=== PATIENT | male | born 1960 | race Caucasian/White ===

== ENCOUNTER → 2020-03-23 | Outpatient (CLI) | payer BC ==
[~2020-03-23] MED LIST: ISOVUE-370 76% 100ML VIAL As Ordered ONE
--- NOTE | 2020-03-23 15:55 | REP ---
INDICATION: ASCENDING AORTIC ANEURYSM COMPARISON: None. TECHNIQUE: Axial contrast enhanced images from the thoracic inlet to the upper abdomen using 75 ml Isovue 370 intravenous contrast material with multiplanar reformations. FINDINGS: The ascending thoracic aorta measures 4.1 cm maximal diameter at the root on true axial plane while the descending thoracic aorta measures 3.0 cm on true axial plane and no significant atherosclerotic changes are appreciated. Heart and pericardium are normal. Pulmonary vasculature appears normal. No pericardial effusion. The bilateral lung rowe are well aerated and clear. No consolidation, suspicious nodule, or mass lesion. No pleural effusion or pneumothorax. Tracheobronchial tree is patent. No adenopathy noted. Musculoskeletal structures are intact and without acute osseous abnormality. Limited upper abdomen demonstrates normal bilateral adrenal glands and evidence for hepatosteatosis. IMPRESSION: 1. Ascending thoracic aorta measures 4.1 cm true diameter. No periaortic inflammatory changes or atherosclerotic disease noted. 2. No acute mediastinal or pleuroparenchymal process. 3. Hepatosteatosis. <Electronically signed by Mikey Rahman > 03/23/20 [id number]
== END ==
LOC: M RAD 14:59
PROVIDERS: ATTEND Internal Medicine Cardiovascular Disease
DX: I71.2 Thoracic aortic aneurysm, without rupture (principal); K76.0 Fatty (change of) liver, not elsewhere classified
CPT/HCPCS: 71260; Q9967

== ENCOUNTER 2021-09-04 14:15 | Outpatient (RCR) | payer BC | END 2021-09-05 | LOC: M PT 14:15 | PROVIDERS: ATTEND Student in an Organized Health Care Education/Training Program | DX: C43.71 Malignant melanoma of right lower limb, including hip (principal) ==

== ENCOUNTER 2021-09-11 16:45 | Outpatient (RCR) | payer BC | END 2021-10-05 | LOC: M PT 16:45 | PROVIDERS: ATTEND Student in an Organized Health Care Education/Training Program | DX: C43.71 Malignant melanoma of right lower limb, including hip (principal) ==